=== PATIENT | male | born 1935 | race Caucasian/White ===

== ENCOUNTER → 2016-12-12 | Outpatient (REF) | LOC: ZLAB.WCH 18:03 | DX: Z01.89 Encounter for other specified special examinations (principal) ==

== ENCOUNTER → 2016-12-12 | Outpatient (REF) ==
[2016-12-12 09:24] LABS: PSA-TOTAL 0.48 ng/mL (0-4); THYROID STIMULATING HORMONE 0.366 uIU/mL (0.465-4.680)
[2016-12-12 09:52] LABS: TOTAL IRON BINDING CAPACITY 453 ug/dL (261-462)
[2016-12-12 19:34] LABS: FERRITIN 6 ng/mL (18-464)
== END ==
LOC: ZLAB.WCH 08:40
PROVIDERS: Internal Medicine
DX: Z01.89 Encounter for other specified special examinations (principal)
CPT/HCPCS: G0103

== ENCOUNTER → 2017-01-01 | Outpatient (REF) ==
[2017-01-01 16:07] LABS: THYROID STIMULATING HORMONE 0.234 uIU/mL (0.465-4.680)
== END ==
LOC: ZLAB.WCH 14:59
PROVIDERS: Internal Medicine
DX: Z01.89 Encounter for other specified special examinations (principal)

== ENCOUNTER → 2017-02-26 | Outpatient (REF) ==
[2017-02-26 18:04] LABS: THYROID STIMULATING HORMONE 0.742 uIU/mL (0.465-4.680)
== END ==
LOC: ZLAB.WCH 17:09
PROVIDERS: Internal Medicine
DX: Z01.89 Encounter for other specified special examinations (principal)

== ENCOUNTER → 2017-03-19 | Outpatient (REF) ==
[2017-03-19 16:34] LABS: THYROID STIMULATING HORMONE 0.358 uIU/mL (0.465-4.680)
== END ==
LOC: ZLAB.WCH 15:12
PROVIDERS: Internal Medicine
DX: Z01.89 Encounter for other specified special examinations (principal)

== ENCOUNTER → 2017-04-18 | Outpatient (REF) ==
[2017-04-18 18:51] LABS: THYROID STIMULATING HORMONE 0.402 uIU/mL (0.465-4.680)
== END ==
LOC: ZLAB.WCH 18:04
PROVIDERS: Internal Medicine
DX: Z01.89 Encounter for other specified special examinations (principal)

== ENCOUNTER → 2017-05-21 | Outpatient (REF) ==
[2017-05-21 16:25] LABS: THYROID STIMULATING HORMONE 0.782 uIU/mL (0.465-4.680)
== END ==
LOC: ZLAB.WCH 15:35
PROVIDERS: Internal Medicine
DX: Z01.89 Encounter for other specified special examinations (principal)

== ENCOUNTER → 2017-06-16 | Outpatient (REF) ==
[2017-06-16 12:15] LABS: THYROID STIMULATING HORMONE 0.266 uIU/mL (0.465-4.680)
[2017-06-16 13:47] LABS: IRON,SERUM 35 ug/dL (35-150)
[2017-06-16 13:56] LABS: TOTAL IRON BINDING CAPACITY 439 ug/dL (261-462)
== END ==
LOC: ZLAB.WCH 11:21
PROVIDERS: Internal Medicine
DX: Z01.89 Encounter for other specified special examinations (principal)

== ENCOUNTER → 2017-07-13 | Outpatient (REF) ==
[2017-07-13 16:48] LABS: THYROID STIMULATING HORMONE 0.517 uIU/mL (0.465-4.680)
== END ==
LOC: ZLAB.WCH 15:54
PROVIDERS: Internal Medicine
DX: Z01.89 Encounter for other specified special examinations (principal)

== ENCOUNTER → 2017-08-14 | Outpatient (REF) ==
[2017-08-14 16:52] LABS: THYROID STIMULATING HORMONE 0.45 uIU/mL (0.465-4.680)
== END ==
LOC: ZLAB.WCH 15:59
PROVIDERS: Internal Medicine
DX: Z01.89 Encounter for other specified special examinations (principal)

== ENCOUNTER → 2017-09-12 | Outpatient (REF) ==
[2017-09-12 17:01] LABS: THYROID STIMULATING HORMONE 0.219 uIU/mL (0.465-4.680)
== END ==
LOC: ZLAB.WCH 15:37
PROVIDERS: Internal Medicine
DX: Z01.89 Encounter for other specified special examinations (principal)

== ENCOUNTER → 2017-11-09 | Outpatient (REF) ==
[2017-11-09 17:56] LABS: THYROID STIMULATING HORMONE 0.477 uIU/mL (0.465-4.680)
== END ==
LOC: ZLAB.WCH 16:45
PROVIDERS: Internal Medicine
DX: Z01.89 Encounter for other specified special examinations (principal)

== ENCOUNTER → 2018-04-09 | Outpatient (REF) ==
[2018-04-09 19:28] LABS: C-REACTIVE PROTEIN < 0.5 mg/dL (0.0-0.9)
[2018-04-09 19:56] LABS: THYROID STIMULATING HORMONE 0.633 uIU/mL (0.465-4.680)
== END ==
LOC: ZLAB.WCH 19:10
PROVIDERS: Internal Medicine
DX: Z01.89 Encounter for other specified special examinations (principal)

== ENCOUNTER → 2018-04-17 | Outpatient (REF) | LOC: COL.CARD 09:10 | DX: Z01.818 Encounter for other preprocedural examination (principal) ==

== ENCOUNTER → 2020-11-05 14:28 | Outpatient (CLI) | payer MEDICARE, OTHER ==
[~2020-11-05] VITALS: Ht 165.1 cm; Wt 68.1 kg
[2020-11-05 11:38] VITALS: BP 119/79; PULSE 87; TEMP 96.9
[2020-11-05 12:00] VITALS: BP 128/76; PULSE 87
[2020-11-05 12:15] VITALS: BP 122/71; PULSE 80
[2020-11-05 12:30] VITALS: BP 128/77; PULSE 83
[2020-11-05 12:45] VITALS: BP 120/73; PULSE 78
[2020-11-05 13:00] VITALS: BP 135/78; PULSE 78; TEMP 97.9
--- NOTE | 2020-11-05 13:10 | NUR ---
Pt tolerated infusion without issue. INT DC'D with catheter intact. Pt escorted out to ED entrance with steady gait.
[~2020-11-05 14:28] MED LIST: ASPIRIN E.C. 8181 MG PO; EPA FISH OIL1 SGL PO; MAGNESIUM500 MG PO; MASON NATURAL2000 IU PO; OCUVITE1 TA1 PO; PHARMASSURE ZIN50 MG PO; SELENIUM200 MC5 PO; TYLENOL 500MG500 MG PO; VITAMIN B122500 MCG SL; VITAMINC1000TA PO; ZOCOR 20MG20 MG PO
== END | disposition home or self-care (01) ==
LOC: EUO 11:00
DX: U07.1 COVID-19 (principal)
CPT/HCPCS: Q0244

== ENCOUNTER 2021-03-30 09:00 | Outpatient (RCR) | payer MEDICARE, OTHER | END 2021-04-01 | disposition home or self-care (01) | LOC: WSOT | DX: M25.531 Pain in right wrist (principal) ==

== ENCOUNTER 2021-05-09 09:00 | Outpatient (RCR) | payer MEDICARE, OTHER | END 2021-05-10 14:10 | disposition home or self-care (01) | LOC: WSOT 09:00 | DX: M25.531 Pain in right wrist (principal) ==

== ENCOUNTER → 2023-08-31 | Outpatient (RCR) | payer MEDICARE, OTHER ==
[~2023-08-31] MED LIST changes: +NORCO 325 MG-51 TAB PO; +ZOFRAN ODT4 MG PO
== END | disposition home or self-care (01) ==
LOC: PT.GENESIS
DX: M75.41 Impingement syndrome of right shoulder (principal); S86.912D Strain of unspecified muscle(s) and tendon(s) at lower leg level, left leg, subsequent encounter

== ENCOUNTER 2023-09-26 09:45 | Outpatient (RCR) | payer MEDICARE, OTHER | END 2023-09-30 | disposition home or self-care (01) | LOC: PT.GENESIS | DX: M25.811 Other specified joint disorders, right shoulder (principal); M25.862 Other specified joint disorders, left knee ==

== ENCOUNTER 2023-10-17 09:30 | Outpatient (RCR) | payer MEDICARE, OTHER | END 2023-10-31 | disposition home or self-care (01) | LOC: PT.GENESIS | DX: M25.511 Pain in right shoulder (principal); M25.562 Pain in left knee ==